=== PATIENT | female | born 1985 | race Caucasian/White ===

== ENCOUNTER 2017-03-27 12:50 | Emergency (ER) | payer OTHER ==
[~2017-03-27] VITALS: Ht 167.6 cm; Wt 133.4 kg
[2017-03-27] MEDS ORDERED: PEPCID20 MG PO (16:41)
[2017-03-27] MEDS ORDERED: ROBITUSSIN DM 101 OZ PO (16:41)
[2017-03-27] MEDS ORDERED: IBU800 M1 PO (16:41)
== END 2017-03-27 16:42 | disposition home or self-care (01) ==
LOC: ED 12:50
DX: R09.1 Pleurisy (principal); R10.9 Unspecified abdominal pain; F17.200 Nicotine dependence, unspecified, uncomplicated